=== PATIENT | male | born 1975 | race Two or more races ===

== ENCOUNTER 2019-07-21 20:07 | Emergency (ER) | payer SELFPAY ==
[~2019-07-21] VITALS: Ht 175.3 cm; Wt 63.5 kg
== END 2019-07-21 20:31 ==
LOC: ER 20:14
DX: R53.1 Weakness (principal)

== ENCOUNTER 2021-11-25 23:11 | Emergency (ER) | payer MEDICAID ==
[~2021-11-25] VITALS: Ht 172.7 cm; Wt 65.8 kg
[2021-11-26 01:04] LABS: Basophils # (auto) 0.1 10 ^3/uL (0-0.2); Basophils % (auto) 2.6 % (0.0-2.0); Eosinophils # (auto) 0 10 ^3/uL (0-0.8); Eosinophils % (auto) 0.8 % (0.0-7.0); Hematocrit 39.3 % (41.0-53.0); Hemoglobin 14.1 g/dL (13.5-17.5); Lymphocytes # (auto) 0.8 10 ^3/uL (0.4-5.4); Lymphocytes % (auto) 18.5 % (10.0-50.0); Mean Corpuscular Hemoglobin 33.1 pg (28.0-32.0); Mean Corpuscular Hgb Conc. 35.8 g/dL (32.0-36.0); Mean Corpuscular Volume 92.6 fL (80.0-100.0); Monocytes # (auto) 0.3 10 ^3/uL (0-1.3); Monocytes % (auto) 7.6 % (0.0-12.0); Neutrophils # (auto) 3.1 10 ^3/uL (1.6-8.6); Neutrophils % (auto) 70.5 % (37.0-80.0); Red Blood Cells 4.25 10^6/uL (4.5-5.90); Red Cell Distribution Width 14.3 % (11.8-14.3); White Blood Cell 4.4 10^3/uL (4.4-10.8)
[2021-11-26 01:23] LABS: Albumin 2.4 g/dL (3.4-5.0); Potassium 4.4 mmol/L (3.5-5.1)
[2021-11-26 01:25] LABS: BUN/Creatinine Ratio 25.3
[2021-11-26 01:28] LABS: Bilirubin, Total 0.8 mg/dL (0.2-1.0); Total Protein 5.1 g/dL (6.4-8.2)
[2021-11-26] MEDS ORDERED: ONDANSETRON HCL 4 MG/2 ML VIAL IV ONE (05:45)
[2021-11-26] MEDS ORDERED: PSEU1TAB26 PO (07:48)
[2021-11-26] MEDS ORDERED: OXYM-15 (07:48)
[2021-11-26 08:00] VITALS: BP 97/65
[2021-11-26] MEDS ORDERED: SODIUM CHLORIDE 0.9% 1,000 ML IV ONE (08:15)
[2021-11-26 08:20] LABS: Urine Bacteria FEW /hpf (None Seen); Urine Blood Negative /uL (Negative); Urine Specific Gravity 1.008 (1.001-1.035); Urine Sperm PRESENT /hpf (None Seen); Urine WBC <1 /hpf (0 - 3)
== END 2021-11-26 08:47 | disposition home or self-care (01) ==
LOC: ER 23:11 → EDBD 23:11 → ER 11-26 06:47
DX: R07.9 Chest pain, unspecified (principal); J06.9 Acute upper respiratory infection, unspecified; B97.89 Other viral agents as the cause of diseases classified elsewhere; Z88.0 Allergy status to penicillin
CPT/HCPCS: 36415; 71045; 80053; 81001; 82962; 83880; 84484; 85025; 93005; 96374; 99285; J2405; J7030

== ENCOUNTER 2021-12-13 23:04 | Emergency (ER) | payer MEDICAID ==
[~2021-12-13] VITALS: Ht 175.3 cm; Wt 72.6 kg
[~2021-12-13 23:04] MED LIST: OXYM-15; PSEU1TAB26 PO
[2021-12-14 00:32] VITALS: BP 109/77
[2021-12-14] MEDS ORDERED: FAMOTIDINE 20 MG TAB PO ONE (07:30)
[2021-12-14] MEDS ORDERED: ONDANSETRON ODT 4 MG TAB PO ONE (07:30)
[2021-12-14] MEDS ORDERED: ALUM & MAG HYDROX-SIMETH LIQ(MAALOX) 30 ML PO ONE (07:30)
[2021-12-14] MEDS ORDERED: LIDOCAINE VISCOUS 2% 15ML UD PO ONE (07:30)
== END 2021-12-14 08:15 | disposition left against medical advice (07) ==
LOC: EDBD 23:04 → ER 23:04
DX: R07.9 Chest pain, unspecified (principal); R06.02 Shortness of breath; R11.2 Nausea with vomiting, unspecified; R19.7 Diarrhea, unspecified; Z79.899 Other long term (current) drug therapy; Z88.0 Allergy status to penicillin
CPT/HCPCS: 71045; 93005